=== PATIENT | male | born 1990 | race Caucasian/White ===

== ENCOUNTER 2017-04-25 14:02 | Emergency (ER) | payer SELFPAY ==
[2017-04-25 14:23] VITALS: BP 117/87
== END 2017-04-25 15:55 | disposition left against medical advice (07) ==
LOC: ED 14:02
DX: M54.5 Low back pain (principal); Z53.21 Procedure and treatment not carried out due to patient leaving prior to being seen by health care provider

== ENCOUNTER 2017-04-26 02:42 | Emergency (ER) | payer SELFPAY ==
[2017-04-26 03:54] LABS: Basophils % (Auto) 0.2 % (0.0-1.8); Eosinophils % (Auto) 0.2 % (0.0-4.3); Hemoglobin 13.9 gm/dl (11.8-15.2); Mean Corpuscular HGB Conc 34 % (32-34); Mean Corpuscular Hemoglobin 32 pg (28-32); Mean Corpuscular Volume 94 fl (84-94); Platelet Count 269 K/mm3 (140-440); Red Blood Count 4.37 M/mm3 (3.65-5.03); Red Cell Distribution Width 12.8 % (13.2-15.2); White Blood Count 7.9 K/mm3 (4.5-11.0)
[2017-04-26 05:07] LABS: Alanine Aminotransferase 10 units/L (7-56); Albumin 4.6 g/dL (3.9-5); Albumin/Globulin Ratio 1.3 %; Alkaline Phosphatase 53 units/L (35-129); Anion Gap 16 mmol/L; Blood Urea Nitrogen 8 mg/dL (9-20); Calcium 9.6 mg/dL (8.4-10.2); Carbon Dioxide 28 mmol/L (22-30); Chloride 101.4 mmol/L (98-107); Glucose 77 mg/dL (75-100); Lipase 25 units/L (13-60); Potassium 3.7 mmol/L (3.6-5.0); Sodium 142 mmol/L (137-145); Total Protein 8.1 g/dL (6.3-8.2)
[2017-04-26 06:37] LABS: Urine Drugs of Abuse Note Disclamer
[2017-04-26 06:49] LABS: Bilirubin,Urine NEG (Negative); Blood,Urine NEG (Negative); Ketones,Urine NEG (Negative); Leukocyte Esterase,Urine NEG (Negative); Mucus,Urine 3+ /HPF; Nitrite,Urine NEG (Negative); Urobilinogen,Urine < 2.0 mg/dL (<2.0)
[2017-04-26] MEDS ORDERED: NORCO 5/325 PO ONE (07:47)
--- NOTE | 2017-04-26 07:53 | Emergency Department Report ---
ED General Adult HPI - General Chief complaint: Back Pain/Injury Stated complaint: BACK/ABD PAIN,DIZZINESS Time Seen by Provider: 04/26/17 07:41 Source: patient, family, RN notes reviewed, old records reviewed Mode of arrival: Ambulatory Limitations: No Limitations - History of Present Illness Initial comments: 27-year-old male presents to the emergency department complaining of abdominal pain and pain in his tailbone. Patient states that he has been having some toothache for the past several days. He has been sitting most of the time. He began having pain in his tub on 2 days ago. This pain has gotten worse. It increases with sitting or movement. Patient was in the emergency department earlier today but left before being seen. After getting home, he began having left lower quadrant abdominal pain. Per report, the patient has not had a bowel movement in 3 days. Mother at bedside states that the patient has had similar problems off and on all of his life. Patient denies trauma. There are no other complaints. -: Gradual, days(s) (2) Location: abdomen, buttocks Radiation: non-radiation Severity scale (0 -10): 3 Quality: sharp Consistency: constant Improves with: none Worsens with: movement Associated Symptoms: other (constipation) Treatments Prior to Arrival: none - Related Data Previous Rx's Medication Instructions Recorded Last Taken Type Polyethylene Glycol 3350 [Miralax 17 gm PO QDAY PRN #30 packet 04/26/17 Unknown Rx 3350] Allergies Allergy/AdvReac Type Severity Reaction Status Date / Time No Known Allergies Allergy Unverified 04/25/17 14:20 ED Review of Systems ROS: Stated complaint: BACK/ABD PAIN,DIZZINESS Other details as noted in HPI Comment: All other systems reviewed and negative Gastrointestinal: abdominal pain, constipation Musculoskeletal: as per HPI, back pain ED Past Medical Hx - Past Medical History Previous Medical History?: No - Surgical History Past Surgical History?: No - Family History Family history: no significant - Social History Smoking Status: Never Smoker Substance Use Type: None - Medications Home Medications: Home Medications Medication Instructions Recorded Confirmed Last Taken Type Polyethylene Glycol 3350 [Miralax 17 gm PO QDAY PRN #30 packet 04/26/17 Unknown Rx 3350] ED Physical Exam - General Limitations: No Limitations General appearance: alert, in no apparent distress - Head Head exam: Present: atraumatic, normocephalic - Eye Eye exam: Present: normal appearance, PERRL, EOMI - ENT ENT exam: Present: normal exam, normal orophraynx, mucous membranes moist - Neck Neck exam: Present: normal inspection, full ROM. Absent: tenderness - Respiratory Respiratory exam: Present: normal lung sounds bilaterally. Absent: respiratory distress - Cardiovascular Cardiovascular Exam: Present: regular rate, normal rhythm, normal heart sounds - GI/Abdominal GI/Abdominal exam: Present: soft, normal bowel sounds. Absent: distended, tenderness - Extremities Exam Extremities exam: Present: normal inspection, full ROM. Absent: tenderness - Back Exam Back exam: Present: normal inspection, full ROM, tenderness (superior medial aspect of right buttock. No erythema or induration) - Neurological Exam Neurological exam: Present: alert, oriented X3. Absent: motor sensory deficit - Skin Skin exam: Present: warm, dry, intact ED Course Vital Signs 04/26/17 04/26/17 04/26/17 03:00 06:19 08:05 Temperature 98.0 F Pulse Rate 87 63 Respiratory 18 16 18 Rate Blood Pressure 119/77 108/53 [Right] O2 Sat by Pulse 98 98 Oximetry ED Medical Decision Making - Lab Data Result diagrams: 04/26/17 03:17 04/26/17 03:17 - Radiology Data Radiology results: image reviewed interpreted by me: X-rays of the abdomen and coccyx reveal dilated loops of colon with moderate to severe amount of stool. There are no bony abnormalities. - Medical Decision Making Imaging results reviewed and discussed with the patient and family. I feel that the patient's symptoms are secondary to his constipation. Patient wants to go home. He will be provided with oral magnesium citrate to take at home. He'll be discharged at this time. - Differential Diagnosis constipation, pressure sore Critical care attestation.: If time is entered above; I have spent that time in minutes in the direct care of this critically ill patient, excluding procedure time. ED Disposition Clinical Impression: Constipation Qualifiers: Constipation type: chronic idiopathic constipation Qualified Code(s): K59.04 - Chronic idiopathic constipation Disposition: TO HOME OR SELFCARE Is pt being admited?: No Condition: Stable Instructions: Constipation (ED), High Fiber Diet (ED) Prescriptions: Polyethylene Glycol 3350 [Miralax 3350] 17 gm PO QDAY PRN #30 packet PRN Reason: Constipation Referrals: PRIMARY CARE, [Primary Care Provider] - 3-5 Days Time of Disposition: 09:00
--- NOTE | 2017-04-26 08:42 | XRay Report ---
ABDOMEN RADIOGRAPHS INDICATION: Abdominal pain, constipation. COMPARISON: None similar. FINDINGS: Supine and upright abdominal radiographs demonstrate nonobstructive bowel gas pattern with diffuse bowel air and some colonic stool. No focal suspicious calcifications, pneumatosis or pneumoperitoneum. Clear visualized lung bases. Unremarkable bones. CONCLUSION: Normal abdominal radiographs, as described. Thank you for the opportunity to participate in this patient's care.
[2017-04-26] MEDS ORDERED: CITRATE OF MAGNESIA PO ONE (08:53)
--- NOTE | 2017-04-26 08:54 | XRay Report ---
SACRUM AND COCCYX: Pain. The bony architecture is intact. The alignment appears normal. No significant soft tissue abnormalities are seen. IMPRESSION: Normal sacrum and coccyx. SUPINE KUB: Abdominal pain. The abdominal gas pattern is unremarkable. No masses or organomegaly is identified and there is no gross evidence of free air or fluid. No significant soft tissue calcifications are noted. IMPRESSION: Normal study.
[2017-04-26 09:13] VITALS: BP 111/64
== END 2017-04-26 09:10 | disposition home or self-care (01) ==
LOC: ED 02:42
DX: K59.00 Constipation, unspecified (principal)
CPT/HCPCS: 36415; 72220; 74020; 80053; 80307; 81001; 83690; 85025; 86140; 99284; G0480; 80320

== ENCOUNTER 2017-08-14 12:20 | Emergency (ER) | payer SELFPAY ==
[2017-08-14 12:41] VITALS: BP 110/71
[2017-08-14] MEDS ORDERED: MOTRIN PO ONE (13:36)
--- NOTE | 2017-08-14 13:38 | Emergency Department Report ---
ED ENT HPI - General Chief complaint: Dental/Oral Stated complaint: TOOTH FELL OUT - PAIN Time Seen by Provider: 08/14/17 12:54 Source: patient Mode of arrival: Ambulatory Limitations: No Limitations - History of Present Illness Initial comments: This is a 27-year-old male nontoxic, well nourished in appearance, no acute signs of distress presents to the ED with c/o of dental pain. Patient stated this is a chronic pain but the past week it got worse and this morning his tooth fell out. Patient denies following up with a dentist. Denies any trauma. Denies facial swelling, chest pain, shortness of breathe, fever, chills, headache, nausea, vomiting, drooling, hoarseness, numbness or tingling. Patient discussed pain as aching little 8 out of 10. Patient denies any allergies or past medical history. MD complaint: tooth pain Location: tooth # 1 - dental pain Severity: mild Severity scale (0 -10): 8 Quality: aching Consistency: constant Improves with: none Worsens with: none Context- Dental: history of dental caries, poor dental care Associated Symptoms: gum swelling, toothache. denies: fever, cough, pain with swallowing, sore throat, tinnitus, hearing loss, discharge from ear, rhinorrhea - Related Data Previous Rx's Medication Instructions Recorded Last Taken Type Polyethylene Glycol 3350 [Miralax 17 gm PO QDAY PRN #30 packet 04/26/17 Unknown Rx 3350] Amoxicillin/K Clav Tab [Augmentin 1 tab PO Q12HR #20 tab 08/14/17 Unknown Rx 875 mg] Ibuprofen [Motrin] 600 mg PO Q8H PRN #30 tablet 08/14/17 Unknown Rx Allergies Allergy/AdvReac Type Severity Reaction Status Date / Time No Known Allergies Allergy Unverified 04/25/17 14:20 ED Dental HPI - General Chief complaint: Dental/Oral Stated complaint: TOOTH FELL OUT - PAIN Time Seen by Provider: 08/14/17 12:54 Source: patient Mode of arrival: Ambulatory Limitations: No Limitations - Related Data Previous Rx's Medication Instructions Recorded Last Taken Type Polyethylene Glycol 3350 [Miralax 17 gm PO QDAY PRN #30 packet 04/26/17 Unknown Rx 3350] Amoxicillin/K Clav Tab [Augmentin 1 tab PO Q12HR #20 tab 08/14/17 Unknown Rx 875 mg] Ibuprofen [Motrin] 600 mg PO Q8H PRN #30 tablet 08/14/17 Unknown Rx Allergies Allergy/AdvReac Type Severity Reaction Status Date / Time No Known Allergies Allergy Unverified 04/25/17 14:20 ED Review of Systems ROS: Stated complaint: TOOTH FELL OUT - PAIN Other details as noted in HPI Constitutional: denies: chills, fever Eyes: denies: eye pain, eye discharge, vision change ENT: dental pain. denies: ear pain, throat pain Respiratory: denies: cough, shortness of breath, wheezing Cardiovascular: denies: chest pain, palpitations Endocrine: no symptoms reported Gastrointestinal: denies: abdominal pain, nausea, diarrhea Genitourinary: denies: urgency, dysuria Musculoskeletal: denies: back pain, joint swelling, arthralgia Skin: denies: rash, lesions Neurological: denies: headache, weakness, paresthesias Psychiatric: denies: anxiety, depression Hematological/Lymphatic: denies: easy bleeding, easy bruising ED Past Medical Hx - Past Medical History Previous Medical History?: No - Surgical History Past Surgical History?: No - Social History Smoking Status: Current Some Day Smoker Substance Use Type: None - Medications Home Medications: Home Medications Medication Instructions Recorded Confirmed Last Taken Type Polyethylene Glycol 3350 [Miralax 17 gm PO QDAY PRN #30 packet 04/26/17 Unknown Rx 3350] Amoxicillin/K Clav Tab [Augmentin 1 tab PO Q12HR #20 tab 08/14/17 Unknown Rx 875 mg] Ibuprofen [Motrin] 600 mg PO Q8H PRN #30 tablet 08/14/17 Unknown Rx ED Physical Exam - General Limitations: No Limitations General appearance: alert, in no apparent distress - Head Head exam: Present: atraumatic, normocephalic - Eye Eye exam: Present: normal appearance Pupils: Present: normal accommodation - ENT ENT exam: Present: mucous membranes moist, TM's normal bilaterally, normal external ear exam - Expanded ENT Exam Expanded Ear exam: Present: normal external inspection Mouth exam: Present: normal external inspection, tongue normal. Absent: drooling, trismus, muffled voice, tongue elevation, laceration Teeth exam: Present: dental caries, dental tenderness #, gingival enlargement 1 - Dental Tenderness Throat exam: Positive: normal inspection. Negative: tonsillar erythema - Neck Neck exam: Present: normal inspection, full ROM. Absent: tenderness, meningismus, lymphadenopathy, thyromegaly - Respiratory Respiratory exam: Present: normal lung sounds bilaterally. Absent: respiratory distress, wheezes, rales, rhonchi, stridor, chest wall tenderness, accessory muscle use, decreased breath sounds, prolonged expiratory - Cardiovascular Cardiovascular Exam: Present: regular rate, normal rhythm, normal heart sounds. Absent: systolic murmur, diastolic murmur, rubs, gallop - GI/Abdominal GI/Abdominal exam: Present: soft, normal bowel sounds. Absent: distended, tenderness, guarding, rebound, rigid, diminished bowel sounds - Rectal Rectal exam: Present: deferred - Extremities Exam Extremities exam: Present: normal inspection, full ROM, normal capillary refill. Absent: tenderness, pedal edema, joint swelling, calf tenderness - Back Exam Back exam: Present: normal inspection, full ROM. Absent: tenderness, CVA tenderness (R), CVA tenderness (L), muscle spasm, paraspinal tenderness, vertebral tenderness, rash noted - Neurological Exam Neurological exam: Present: alert, oriented X3, CN II-XII intact, normal gait, reflexes normal - Psychiatric Psychiatric exam: Present: normal affect, normal mood - Skin Skin exam: Present: warm, dry, intact, normal color. Absent: rash - Other Other exam information: No facial swelling or dental abscess noted. ED Course Vital Signs 08/14/17 12:39 Temperature 98.3 F Pulse Rate 73 Respiratory 16 Rate Blood Pressure 110/71 O2 Sat by Pulse 98 Oximetry - Reevaluation(s) Reevaluation #1: 08/14/17 13:37 Patient is speaking in full sentences with no signs of distress noted. ED Medical Decision Making - Medical Decision Making This is a 27-year-old male who presents with dental caries and gingivitis. Patient is stable and was examined by me. There is no facial swelling or dental abscesses noted. Patient received motrin in the ED. Patient be discharged with Augmentin and ibuprofen. Patient was instructed to follow-up with a dentist in 3-5 days or if symptoms worsen and continue such as facial swelling returns for emergency room as soon as possible. At time time of discharge, the patient does not seem toxic or ill in appearance. No acute signs of distress noted. Patient agrees to discharge treatment plan of care. No further questions noted by the patient. Critical care attestation.: If time is entered above; I have spent that time in minutes in the direct care of this critically ill patient, excluding procedure time. ED Disposition Clinical Impression: Dental caries, Gingivitis Disposition: TO HOME OR SELFCARE Is pt being admited?: No Does the pt Need Aspirin: No Condition: Stable Instructions: Dental Caries (ED), Gingivitis (ED), Ibuprofen (By mouth), Amoxicillin/Clavulanate Potassium (By mouth) Additional Instructions: follow-up with a dentist in 3-5 days or if symptoms worsen and continue such as facial swelling returns for emergency room as soon as possible. Prescriptions: Amoxicillin/K Clav Tab [Augmentin 875 mg] 1 tab PO Q12HR #20 tab Ibuprofen [Motrin] 600 mg PO Q8H PRN #30 tablet PRN Reason: Pain Referrals: PRIMARY CAREMD [Primary Care Provider] - 3-5 Days KYLE PÉREZ MD [Staff Physician] - 3-5 Days [facility] [Outside] - 3-5 Days Forms: Work/School Release Form(ED)
== END 2017-08-14 13:48 | disposition home or self-care (01) ==
LOC: ED 12:20
DX: K02.9 Dental caries, unspecified (principal); K05.10 Chronic gingivitis, plaque induced; F17.200 Nicotine dependence, unspecified, uncomplicated
CPT/HCPCS: 99282

== ENCOUNTER 2020-04-16 20:10 | Emergency (ER) | payer SELFPAY ==
[2020-04-16 20:25] VITALS: BP 97/64
== END 2020-04-16 22:50 | disposition left against medical advice (07) ==
LOC: ED 20:10
DX: R42 Dizziness and giddiness (principal); Z53.21 Procedure and treatment not carried out due to patient leaving prior to being seen by health care provider

== ENCOUNTER 2021-10-04 07:26 | Emergency (ER) | payer SELFPAY ==
[2021-10-04 08:05] VITALS: BP 119/74
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
== END 2021-10-04 08:10 | disposition home or self-care (01) ==
LOC: ED 07:26
DX: S00.502A Unspecified superficial injury of oral cavity, initial encounter (principal); X58.XXXA Exposure to other specified factors, initial encounter; Y93.89 Activity, other specified; Y92.89 Other specified places as the place of occurrence of the external cause; Y99.8 Other external cause status
CPT/HCPCS: 99282